=== PATIENT | male | born 1945 | race Caucasian/White ===

== ENCOUNTER 2019-03-01 08:18 | Outpatient (RCR) | payer MEDICARE, SELFPAY ==
--- NOTE | 2019-03-04 09:04 | HP.OTEVAL_ITS ---
Patient's Visit Information MATTHEW CUEVA is a 73 year old M, referred to Occupational Therapy by Pablo Samuels MD, with a diagnosis of Dupuytren contracture. Date of Evaluation: 03/01/19 Occupational Therapist: Jolene Stiles, ELISE/Bryant, CHT - Subjective Subjective: This 73 year old male was seen for OT eval following left LF xiaflex injection on 02/18/19 and manipulation on 02/21/19. Pt is in need of custom orthosis for night use. - ROM ROM Comments: pt demo good functional ROM of left composite fist and ext of digits - Quick DASH-Disab of Arm,Shoulder& Hand Quick DASH Score: 11.3625 - Goals Goal:: PT will demo ind. donning/doffing of custom orthosis by end of 1st session. - Rehabilitation General Assessment: Pt arrives following left LF xiaflex injection on 02/18/19 and manipulation on 02/21/19. Pt is in need of custom orthosis for night use. Therapist fabricated orthosis ed. on use and care. pt demo understanding. pt also given handout on HEP for ROM. pt demo understanding of HEP and will only return if he needs orthosis adj. or have any questions with his ROM Rehabilitation Potential: Good - Anticipated Interventions Anticipated Interventions: Orthoses, Home Program Other Interventions: ed. pt on orthosis use - Visit Plan TEXT: Thank you for the opportunity to evaluate your patient. For Medicare and Medicare HMO plans, please review the plan of care and approve it. It will need to be FAXED BACK to us at [phone] for Medicare purposes. Please let me know if there are questions or concerns regarding this plan of care. Physician Signature: Date:
--- NOTE | 2019-04-09 10:01 | HP.OT.NRP ---
HP - Discharge Summary - Patient Information MATTHEW CUEVA was seen in my office for initial evaluation on 03/01/19. The following Plan of Care was established for this patient: - Anticipated Interventions Anticipated Interventions: Orthoses, Home Program Other Interventions: ed. pt on orthosis use This patient was last seen in our office 03/01/19. Pertinent comments regarding their Occupational therapy will appear below: Pt seen for initial OT eval only. At this point I will be discontinuing this patient from occupational therapy. I would be happy to see this patient again in the future if found appropriate by the physician. Thank you! Jolene Stiles, OTR/L, CHT
== END 2019-03-01 19:00 | disposition home or self-care (01) ==
LOC: OT 08:18
PROVIDERS: Family Provider Family Medicine; PCP Family Medicine; Referring Provider Orthopaedic Surgery; Visit Provider Orthopaedic Surgery
DX: M72.0 Palmar fascial fibromatosis [Dupuytren] (principal)
CPT/HCPCS: 97165; 97760

== ENCOUNTER 2020-05-01 08:44 | Emergency (ER) | payer MEDICARE, SELFPAY ==
[2020-05-01 08:45] VITALS: BP 146/86; PULSE 95; RESP 18; TEMP 36.2; O2SAT 99; BMI 27.5
--- NOTE | 2020-05-01 08:59 | ED.VISSUMM ---
- ER Visit Summary Date of Service: 05/01/20 Chief Complaint: Urinary retention History of Present Illness: The patient is a 74 M who presents with urinary retention that began last night. Patient states he has been unable to urinate since last night. Patient states he is able to dribble small amounts of urine but he is unable to empty his bladder. Patient admits to some burning with urination. Patient denies any hematuria. Patient denies any flank or back pain. Patient denies any nausea or vomiting. Patient denies any fevers or chills. Patient had a recent cystoscopy and was noted to have prostate hypertrophy. Physical Examination: Vital signs are stable. Patient is afebrile. Patient is in no acute distress. Neck is supple. Trachea is midline. There is no JVD. Heart was regular rate and rhythm. Lungs are clear and equal bilaterally. Abdomen is soft. Bowel sounds are normal. There is a distended bladder noted. There is some mild suprapubic tenderness. There is no rebound or guarding noted. There is no CVA tenderness noted. Cranial nerves II through XII are intact. There are no focal motor or sensory deficits noted. Emergency Department Course and Treatment: Salinas catheter was placed. Dr. Bustillos called him prior to the patient coming to the emergency department and 1 of the patient to be given a prescription for 5-day course of Cipro. He will follow-up with the patient in his office. Patient was also given a leg bag. Patient understood and was agreeable with the plan. All questions were answered. Disposition: Discharge home Impression: 1. Urinary retention This note was generated with [employer] dictation software. It may contain incorrect words, spelling, and punctuation that were not noted in review of the chart prior to signing ED Disposition - Plan for ED Patient: Disposition: Home or Assisted Living Diagnosis: Urinary retention due to benign prostatic hyperplasia Instructions: ED Salinas Catheter Care, ED Prostate Enlarged Prescriptions: Ciprofloxacin [Cipro] 500 mg PO BID #10 tab Transmission Status: Pending to [facility] Referrals: Oliver Bustillos MD [STAFF PHYSICIAN] - 3-5 Days
[2020-05-01] MEDS: Lidocaine Jelly 2% 20 ML Syringe (URO-JET) 20 APPLIC TOPICAL (09:11)
[2020-05-01 09:24] VITALS: PULSE 88; RESP 16
[2020-05-01] MEDS: Ciprofloxacin 500 MG Tablet PO (09:24)
== END 2020-05-01 09:37 | disposition home or self-care (01) ==
PROVIDERS: Emergency Provider Emergency Medicine; PCP Family Medicine
DX: N40.1 Benign prostatic hyperplasia with lower urinary tract symptoms (principal); R33.8 Other retention of urine
CPT/HCPCS: 51702; 99284

== ENCOUNTER 2020-05-06 08:29 | Emergency (ER) | payer MEDICARE, SELFPAY ==
[2020-05-06 08:30] VITALS: BP 133/77; PULSE 91; RESP 16; TEMP 36.5; O2SAT 98; BMI 28.5
[2020-05-06] MEDS: Lidocaine Jelly 2% 20 ML Syringe (URO-JET) 20 APPLIC TOPICAL (08:40)
--- NOTE | 2020-05-06 08:41 | ED.DCSUM_ITS ---
- ER Visit Summary Date of Service: 05/06/20 Chief Complaint: Urinary retention History of Present Illness: The patient is a [address] pro krutz. He reports today a Salinas catheter placed May 01. It was removed yesterday. He did fine throughout the day. However, he reports that he was up all night trying to urinate and was unable to go. He complains of pain at the tip of his penis. He reports that he had a small amount of white discharge from his penis that he believes may have been the gel that was used when the catheter was placed. He denies any fever, chills, nausea, vomiting, or other constitutional symptoms. He is currently on Flomax and Proscar. Physical Examination: Vitals: Stable. Afebrile. General: Well-nourished and well-developed. Head: Normocephalic atraumatic. Neck: Supple, no lymphadenopathy. No JVD. Nontender. Cardiovascular: Regular rate and rhythm. No murmurs. Respiratory: No respiratory distress. Clear to auscultation bilaterally. Abdominal: Soft, mildly distended bladder with mild tenderness to palpation, nondistended, normal bowel sounds. No guarding, rebound, or peritoneal signs. : Normal circumcised male. No erythema or discharge from his penis. Back: Nontender. Extremities: Nontender, no edema. Skin: Normal color, no rash. Neurologic: Alert and oriented ?3. Cranial nerves II through XII are intact. Normal strength and sensation. Psych: Normal affect. Test Results: Urinalysis shows occult blood. Chem-7 shows a chloride of 111 and BUN of 27. Creatinine is 1.49 and there is no old for comparison. CBC shows an H&H of 10.7 31.6, segmented for 73, lymphocytes of 16. Emergency Department Course and Treatment: Patient had lidocaine used and a Salinas catheter was placed. He is had 500 cc of urine out. Treatment Plan: Patient was discussed with Dr. pro kurtz. He will be discharged with instructions to use triple antibiotic to the area. Follow-up with Dr. Bustillos in 3 to 5 days. Patient is already scheduled for a TURP. Return to the emergency department for any worsening symptoms. Disposition: To home in improved and stable condition. Impression: 1. Urinary retention. This note was generated with [employer] software. It may contain incorrect words, spelling, and punctuation that were not noted in review of the chart prior to signing ED Disposition - Plan for ED Patient: Instructions: ED Urinary Retention Male Referrals: Oliver Bustillos MD [STAFF PHYSICIAN] - 3-5 Days
[2020-05-06 08:57] LABS: Bacteria 0 SEEN /hpf (None Seen); Mucous, Urine 0 SEEN /hpf (<or=2+); Squamous Epithelial Cells - UA 0 SEEN /hpf (0-5); White Blood Cells 0 SEEN /hpf (0-5)
[2020-05-06 08:59] LABS: Color, Urine Yellow (Yellow); Glucose, Dipstick Normal (Normal); Ketone-Dipstick Negative (Negative); Leukocyte Esterase-Dipstick Negative /ul (Negative); Nitrite-Dipstick Negative (Negative); Occult Blood-Urine 10 /ul (Negative); Protein-Dipstick Negative (Negative); Urine Bilirubin Dipstick Negative (Negative); Urine Clarity Sl. Cloudy (Clear); Urine Urobilinogen Normal (Normal)
[2020-05-06 09:09] LABS: Absolute Lymphocyte Count 0.72 X10^3/uL (0.83-4.51); Absolute Neutrophil Count 3.3 X10^3/uL (2.0-7.7); Basophil# 0.02 X10^3/uL; Basophil% 0.4 % (0-1); Eosinophil# 0.09 X10^3/uL; Hematocrit 31.6 % (40-54); Hemoglobin 10.7 g/dL (13.0-16.5); Lymphocyte # 0.72 X10^3/ul (4.0); Lymphocyte % 15.9 % (19-41); Mean Corp Hgb Conc 33.9 g/dL (32-36); Mean Corpuscular Hgb 33.2 pg (27.0-32.0); Mean Corpuscular Volume 98.1 fL (80-94); Mean Platelet Vol. 9.3 fl (6.2-12.0); Monocyte# 0.37 X10^3/uL; Monocyte% 8.1 % (0-10); NRBC Flagged by Analyzer 0 % (0-5); Neutrophil # 3.31 X10^3/uL (2.7-7.7); Neutrophil % 72.9 % (47-70); Platelet Count 198 K/mm3 (150-450); RBC Distribution Width SD 43.5 fl (35.1-43.9); Red Blood Count 3.22 M/mm3 (4.6-6.2); White Blood Count 4.5 K/mm3 (4.4-11.0)
[2020-05-06 09:09] LABS: Red Blood Cells-Urine 0-5 SEEN /hpf (0-5)
[2020-05-06 09:22] LABS: Anion Gap 4 (5-15); BUN 27 mg/dL (7-18); BUN/Creat Ratio 18.1 RATIO (10-20); Calcium,Total 9.1 mg/dL (8.5-10.1); Chloride 111 mmol/L (98-107); Creatinine, Serum 1.49 mg/dL (0.70-1.30); EST Glomerular Filtration Rate 49 mL/min (>60); Est Glom Filt Rate - Afr Amer 59 mL/min (>60); Estimated Creatinine Clearance 52.59 ml/min; Glucose 96 mg/dL (74-106); Potassium 4.1 mmol/L (3.5-5.1); Sodium Level 141 mmol/L (136-145)
[2020-05-06 10:12] VITALS: BP 126/66; PULSE 68; RESP 18; O2SAT 99
== END 2020-05-06 10:13 | disposition home or self-care (01) ==
LOC: ED 09:09
PROVIDERS: Emergency Provider Emergency Medicine; PCP Family Medicine
DX: N40.1 Benign prostatic hyperplasia with lower urinary tract symptoms (principal); R33.8 Other retention of urine; I10 Essential (primary) hypertension; N28.9 Disorder of kidney and ureter, unspecified; Z79.899 Other long term (current) drug therapy; Z87.891 Personal history of nicotine dependence
CPT/HCPCS: 51702; 80048; 81001; 85025; 99283

== ENCOUNTER 2020-05-13 05:58 | Day surgery (SDC) | payer MEDICARE, SELFPAY ==
--- NOTE | 2020-05-06 16:00 | EKG12_ITS ---
Test Reason : PREOP Blood Pressure : / mmHG Vent. Rate : 087 BPM Atrial Rate : 087 BPM P-R Int : 140 ms QRS Dur : 092 ms QT Int : 360 ms P-R-T Axes : 066 050 039 degrees QTc Int : 433 ms Normal sinus rhythm Normal ECG Confirmed by MALLY GALEANA, MIREYA ([id number]), content editor NADJA SEAMAN ([id number]) on 05/13/2020 10:50:58 AM Referred By: Oliver Bustillos Confirmed By:EED BAL MD
[2020-05-13] VITALS (13 sets, daily range): BP systolic 103–120; BP diastolic 56–74; PULSE 62–75; RESP 16–18; TEMP 36.1–36.7; O2SAT 95–100; BMI 27.1
[2020-05-13] MEDS: Lactated Ringers 1,000 ML 100 ML IV ×2 (06:45→09:24)
[2020-05-13] MEDS: Cefazolin 2 GM in 0.9% Normal Saline 100 ML IV (07:23)
--- NOTE | 2020-05-13 07:26 | PCM.HP.STD ---
History of Present Illness Date of Admission: 05/13/20 Chief Complaint: BPH with obstruction and urinary retention The patient is a 74 year old male who was seen in the office on cystoscopy was found to have significant bilateral hypertrophy and obstruction recommended a transurethral resection of the prostate. Today he presents with a catheter in order to proceed with surgery in the prostate. Past Medical History Allergies No Known Allergies Allergy (Verified 05/13/20 06:30) Home Medications: Ambulatory Orders Medication Instructions Recorded Ciprofloxacin [Cipro] 500 mg PO BID #10 tab 05/01/20 Amlodipine [Norvasc] 5 mg PO DAILY 05/06/20 Finasteride [Proscar] 5 mg PO DAILY 05/06/20 Lisinopril 20 mg PO DAILY 05/06/20 Tamsulosin HCl [Flomax] 0.8 mg PO DAILY 05/06/20 Surgical History: no surgical history Smoking Status: Never smoker Tobacco Use: Non-smoker Review of Systems Constitutional: Denies: Chills, Fever, Weight Change HEENT: Denies: Head Aches, Sinus Congestion, Sinus Drainage Cardiovascular: Denies: Chest Pain, Palpitations Respiratory: Denies: Cough, Shortness of breath at rest, Sputum production Gastrointestinal: Denies: Abdominal Pain, Nausea, Vomiting Genitourinary: Denies: Dysuria Musculoskeletal: Denies: Joint Pain, Joint Tenderness Skin: Denies: Rash, Wounds Neurological: Denies: Numbness, Tingling, Focal weakness Psychiatric: Denies: Anxiety, Depression, Homicidal Ideations, Suicidal Ideations Hematologic/ Lymphatic: Denies: Easy Bruising, Easy Bleeding VTE Information - Inpt Only VTE Present on Admission: No - Physical Exam Vitals/I&O's: Vital Signs Temp Pulse Resp BP Pulse Ox 97.6 F L 71 18 113/70 99 05/13/20 06:30 05/13/20 06:30 05/13/20 06:30 05/13/20 06:30 05/13/20 06:30 Oxygen Delivery Method Room Air Weight: 101.1 kg Body Mass Index (BMI) 27.1 General: Alert, Oriented x3, Cooperative HEENT: Atraumatic, PERRLA, EOMI, Normocephalic Neck: Supple, No JVD, Negative Carotid Bruits Lungs: Clear to auscultation, Normal air movement Cardiovascular: Regular rate, No murmurs Abdomen: Bowel Sounds Present, Soft, Non Tender Extremities: No edema, Capillary Refill Less than 3 Seconds Skin: No rashes, No breakdown Musculoskeletal: No Tenderness to Palpation of Joints or Extremities Neurological: Cranial nerves II-XII grossly intact Psych/Mental Status: Normal Affect, Appropriate Current Medications Cefazolin Sodium 2 gm/ Sodium (Chloride) 110 mls @ 150 mls/hr IV PREOP ONE Stop: 05/13/20 09:03 Lactated Ringer's () 1,000 mls @ 100 mls/hr IV .Q10H GILBERTO Last Admin: 05/13/20 06:45 Dose: 100 mls/hr Documented by: Assessment/Plan Plan to proceed with transurethral resection of the prostate.
--- NOTE | 2020-05-13 07:30 | PROS_PTH ---
PATIENT: MATTHEW CUEVA [place] [facility] [id number] AGE/SX: 74/M ROOM: RE05/13/[address]: Dr. Oliver Bustillos MD : [id number] BED: DIS: 05/14/2020 SPEC #: [id number] RECD: 05/13/20 10:22 STATUS: JERRELL REClementina #: [id number] DOMINICK: 05/13/20 07:[address]: Oliver Bustillos DEPT: SURGICAL PATHOLOGY RECD BY: Oneyda Casanova ENTERED: 05/13/20 12:21 SP TYPE: TURP OTHR DR: Dr. Adam Mata III, MD Tissues: Prostate, NOS Procedures: Surgery Specimen Level IV HEADER OPERATION: Cysto, TUR prostate, Olympus PRE-OP DIAGNOSIS: BPH with obstruction and urinary retention TISSUE SUBMITTED: Prostate pieces MICROSCOPIC DIAGNOSIS Prostate transurethral resection: Benign nodular hyperplasia, glandular and stromal types. Chronic inflammation. AM:imelda 05/14/20 MICROSCOPIC DESCRIPTION Slides are reviewed. GROSS DESCRIPTION Received is one container labeled with the patient's name and designated prostate pieces. The specimen consists of multiple irregular fragments of pink-fajardo, rubbery, soft tissue that in aggregate weigh 17.8 gm and measure in aggregate 6 x 6 x 2.5 cm. The entire specimen is submitted in ten cassettes. / SJ:imelda 05/13/20 TC:3 CPT: 17971
[2020-05-13] MEDS: Lubricating Jelly 60 GM Tube 30 GM TOPICAL (07:40)
--- NOTE | 2020-05-13 08:39 | DCINST_ITS ---
Discharge Diet: Light diet - advance as tolerated Discharge Activity: Return to Normal Activity Call your doctor if your incision/area has: Continuous Slow Oozing, Sudden Increased Bleeding, Increased Pain/ Swelling, Increased Redness, Foul Smelling Discharge, Swelling at the incision site Suture Line Care: Avoid Pulling/Pushing, Avoid Pinching/Bending Instructions: Transurethral Resection of the Prostate (TURP): Home Recovery Allergies/Adverse Reactions: Allergies No Known Allergies Allergy (Verified 05/13/20 06:30) Medications to take at Discharge Ciprofloxacin [Cipro] 500 mg PO BID #10 tab 05/01/20 Amlodipine [Norvasc] 5 mg PO DAILY 05/06/20 Finasteride [Proscar] 5 mg PO DAILY 05/06/20 Lisinopril 20 mg PO DAILY 05/06/20 Tamsulosin HCl [Flomax] 0.8 mg PO DAILY 05/06/20 Ciprofloxacin [Cipro] 500 mg PO BID #14 tab 05/13/20 The following prescriptions were given: Ciprofloxacin [Cipro] 500 mg PO BID #14 tab Transmission Status: Pending to [facility] [place] [address] Orders to be completed after discharge: 12 Lead EKG [CVS] Time Frame: 05/08/20, Location: None Selected Primary Care Physician: Adam Mata III, MD [Primary Care Provider] - Test Results: Test results from this visit will be discussed in further detail at your follow- up appointment, if applicable. Please Follow Up With: Oliver Bustillos MD When: in 2 weeks, please call to make an appointment.
--- NOTE | 2020-05-13 08:40 | OP.PCM_ITS ---
Report of Operation Date of Procedure: 05/13/20 Pre-Operative Diagnosis: BPH with obstruction Post-Operative Diagnosis: Same Surgery/Procedure Performed:: Transurethral resection of the prostate Description of Surgical Findings:: 74-year-old male with a history of enlarged prostate and obstruction presents the hospital for treatment of the prostate with a transurethral resection. He was taken back to the operating room. After smooth induction of general anesthesia he was placed in dorsolithotomy position. The penis and testicles were prepped and draped in usual sterile fashion. I went into the bladder with a 24 [place]an noncontinuous flow resectoscope Olympus. Identify the right and left ureteral orifice. 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 I then pulled back into the prostate and identified the verumontanum. I marked the verumontanum circumferentially to know the limit of the resection. I then started the resection of the prostate using the Olympus and I resected the floor of the right of the prostate left the prostate and very carefully resected the roof of the prostate and then the apical tissue. Had a nice wide open resection down to the verumontanum the sphincter was intact. Bleeding was controlled with hemostasis. All the chips were Ellik out of the bladder. We then placed a 22 [place] Salinas catheter into the bladder and continuous irrigation the urine was a light pink color and he was taken back to the PACU in good condition. Type of Anesthesia:: General Drains: [address] - Admit VTE Documentation VTE Present on Admission: No VTE Mechan Device Prophylaxis: SCD's
[2020-05-13] MEDS: 0.45% Normal Saline 1,000 ML 75 ML IV (11:35)
[2020-05-13] MEDS: Magnesium Hydroxide 30 ML UDC 15 ML PO (12:02)
[2020-05-13] MEDS: oxyCODONE 5 MG Tablet PO ×2 (12:09→21:36)
[2020-05-13] MEDS: Ciprofloxacin 400 MG/200 ML BAG 200 MG IV (15:17)
[2020-05-13] MEDS: Docusate Sodium 100 MG Capsule PO (21:36)
[2020-05-14] MEDS: 0.45% Normal Saline 1,000 ML 75 ML IV (01:31)
[2020-05-14 02:30] VITALS: BP 112/69; PULSE 69; RESP 16; TEMP 36.4; O2SAT 96
[2020-05-14 06:13] LABS: Hematocrit 30.9 % (40-54); Hemoglobin 10.1 g/dL (13.0-16.5); Mean Corp Hgb Conc 32.7 g/dL (32-36); Mean Corpuscular Hgb 32.2 pg (27.0-32.0); Mean Corpuscular Volume 98.4 fL (80-94); Platelet Count 213 K/mm3 (150-450); RBC Distribution Width CV 12.1 % (11.6-14.6); RBC Distribution Width SD 43.8 fl (35.1-43.9); Red Blood Count 3.14 M/mm3 (4.6-6.2); White Blood Count 10.2 K/mm3 (4.4-11.0)
[2020-05-14 06:48] LABS: Anion Gap 4 (5-15); BUN 24 mg/dL (7-18); BUN/Creat Ratio 17.6 RATIO (10-20); Calcium,Total 8.6 mg/dL (8.5-10.1); Chloride 109 mmol/L (98-107); Creatinine, Serum 1.36 mg/dL (0.70-1.30); EST Glomerular Filtration Rate 54 mL/min (>60); Est Glom Filt Rate - Afr Amer 66 mL/min (>60); Estimated Creatinine Clearance 56.09 ml/min; Glucose 99 mg/dL (74-106); Potassium 4.5 mmol/L (3.5-5.1); Sodium Level 139 mmol/L (136-145)
--- NOTE | 2020-05-14 08:11 | NURSING ---
Per lorie Townsend to D/C merlos. Pt tolerated well. Removed 30 cc from balloon and noted 800cc of urine upon D/C. There was a small amount of blood noted on D/C of merlos. Angela LOUISE
[2020-05-14] MEDS: Ciprofloxacin 400 MG/200 ML BAG 200 MG IV (09:14)
[2020-05-14] MEDS: Lisinopril 20 MG Tablet PO (09:15)
[2020-05-14] MEDS: Tamsulosin HCl 0.4 MG Capsule 0.8 MG PO (09:15)
[2020-05-14] MEDS: Pantoprazole Sodium 20 MG Tablet PO (09:15)
[2020-05-14] MEDS: Docusate Sodium 100 MG Capsule PO (09:15)
[2020-05-14] MEDS: amLODIPine 5 MG Tablet PO (09:15)
[2020-05-14] MEDS: Finasteride 5 MG Tablet PO (09:16)
[2020-05-14] MEDS: Magnesium Hydroxide 30 ML UDC 15 ML PO (09:22)
[2020-05-14 10:34] VITALS: BP 123/71; PULSE 71; RESP 18; TEMP 36.3; O2SAT 96
[2020-05-14 11:57] VITALS: BP 124/69; PULSE 74; RESP 18; TEMP 37; O2SAT 99
== END 2020-05-14 07:26 | disposition home or self-care (01) ==
LOC: SDC 05:58 → AC 05:59 → PCU 05-14 12:17
PROVIDERS: Anesthesiology; PCP Family Medicine; Referring Provider Urology; Visit Provider Urology
PROC: (CPT 52601; principal; 2020-05-13 07:20)
DX: N41.1 Chronic prostatitis (principal); N40.1 Benign prostatic hyperplasia with lower urinary tract symptoms; N32.81 Overactive bladder; N13.8 Other obstructive and reflux uropathy; R33.8 Other retention of urine; I10 Essential (primary) hypertension; Z87.891 Personal history of nicotine dependence
CPT/HCPCS: 00914; 52601; 36415; 80048; 85027; 87635; 88305; 93005; C9803; J7120; J0744; J2405; U0003

== ENCOUNTER 2020-09-28 11:47 | Outpatient (RCR) | payer MEDICARE, SELFPAY ==
[2020-05-13 11:14] VITALS: BMI 27.1
== END 2020-09-28 23:59 ==
LOC: IMMUN 11:47
PROVIDERS: PCP Family Medicine; Visit Provider Family Medicine
DX: Z23 Encounter for immunization (principal)
CPT/HCPCS: 0011A; 0012A

== ENCOUNTER 2022-12-31 15:07 | Emergency (ER) | payer MEDICARE, SELFPAY ==
[2022-12-31 15:09] VITALS: BP 94/66; PULSE 73; RESP 18; TEMP 36.6; O2SAT 98; BMI 26.9
--- NOTE | 2022-12-31 15:24 | ED.RN ---
IV FLUIDS INFUSING FROM EMS
--- NOTE | 2022-12-31 15:39 | EKG12_ITS ---
Test Reason : SYNCOPE Blood Pressure : / mmHG Vent. Rate : 074 BPM Atrial Rate : 074 BPM P-R Int : 146 ms QRS Dur : 094 ms QT Int : 382 ms P-R-T Axes : 063 067 029 degrees QTc Int : 424 ms Normal sinus rhythm Normal ECG Confirmed by DREA GALEANA, ROBERTO ([id number]), editor magazine NADJA SEAMAN ([id number]) on 01/03/2023 8:37:17 AM Referred By: Confirmed By:ROBERTO SHEPARD MD
--- NOTE | 2022-12-31 15:40 | EX.ED.DYSGE1 ---
HPI History of Present Illness Chief Complaint: Syncope Detail of Chief Complaint: Near syncope Informant: patient and family Onset/Context/Timing Onset: Today Context: Sudden Onset Current Severity: Gone Maximum Severity: Moderate Narrative Narrative: 77-year-old male history of hyper tension for which she is on lisinopril and amlodipine. Patient walks a fair amount he walked yesterday and cut his lawn. He walked a mile today. He was in the parking lot of the senior living where his stays, [facility], and felt like he was going to pass out. He got lightheaded. He denies any headache, chest pain, shortness of breath, abdominal pain. He denies any nausea, vomiting, diarrhea or melena. He denies any recent illnesses and has been feeling quite well. When he felt lightheaded today instead of falling or passing out he lowered himself to the ground. He denies any injuries. Reportedly the squad had a blood pressure of 80s over 40s. He is currently receiving IV fluids says he feels a lot better. Our initial blood pressure in ER was 94/66. Currently is 104/67. Prior similar symptoms: No Recent Illness/Hospitalization: No PFSH PFSH Home Medications amlodipine 5 mg tablet 5 mg PO DAILY 05/06/20 [History Last Taken Unknown] finasteride 5 mg tablet 5 mg PO DAILY 05/06/20 [History Last Taken Unknown] lisinopril 20 mg tablet 20 mg PO DAILY 05/06/20 [History Last Taken Unknown] tamsulosin 0.4 mg capsule 0.8 mg PO DAILY 05/06/20 [History Last Taken Unknown] meloxicam 15 mg tablet 15 mg PO DAILY 12/31/22 [History Last Taken Unknown] trazodone 50 mg tablet 50 mg PO DAILY 12/31/22 [History Last Taken Unknown] Allergy/AdvReac Type Severity Reaction Status Date / Time No Known Allergies Allergy Verified 05/13/20 06:30 Social History Smoking Status: Never smoker ROS ROS ED ROS Narrative Denies recent illness. Denies headache, chest pain, shortness of breath, abdominal pain, vomiting or diarrhea. Review of Systems ROS Unobtainable: Denies due to encephalopathy Constitutional Constitutional ED: Denies chills or fever(s) Eyes Eyes: Denies blurry vision ENT ENT ED: Denies ear pain Cardiovascular Cardiovascular: Denies chest pain Respiratory/Chest Respiratory/Chest: Denies cough or dyspnea Gastrointestinal Gastrointestinal: Denies abdominal pain Genitourinary Genitourinary ED: Denies dysuria or hematuria Musculoskeletal Musculoskeletal: Denies arthralgias Integumentary Denies abscess Neurologic Neurologic: Denies headache(s) Psychiatric Psychiatric: Denies anxiety Endocrine Endocrinology: Denies cold intolerance Hematologic/Lymphatic Hematologic/Lymphatic: Reports none Allergic/Immunologic Allergic/Immunologic ED: Denies mouth swelling or tongue swelling EXAM Physical Exam Narrative Exam Narrative: Well-appearing 77-year-old male. Blood pressure while I am in the room is 104/67. Afebrile. Normal pulse ox 98% on room air no hypoxia. H EENT exam unremarkable. No trauma. Moist with members. Neck nontender. No lymphadenopathy. Lungs clear to auscultation bilaterally. Heart regular rhythm rate about 70 no murmur. Chest wall nontender. Abdomen soft nontender. 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 Normal dorsi plantarflexion. Normal sensation. Back nontender. Neurologic exam normal. Awake alert. Normal strength or sensation. NIH is 0. Const Vital Signs: 12/31/22 15:09 12/31/22 16:23 12/31/22 16:29 Temperature 97.8 F Temperature Source Oral Pulse Rate 73 77 Pulse Rate [Lying] 77 Pulse Rate [Sitting (for 1 minute prior to obtaining)] 84 Pulse Rate [Standing (for 1 minute prior to obtaining)] 89 Respiratory Rate 18 15 Blood Pressure 94/66 100/69 Blood Pressure [Lying] 100/69 Blood Pressure [Sitting (for 1 minute prior to obtaining)] 109/66 Blood Pressure [Standing (for 1 minute prior to obtaining)] 112/63 Blood Pressure Mean 75 79 Blood Pressure Mean [Lying] 79 Blood Pressure Mean [Sitting (for 1 minute prior to obtaining)] 80 Blood Pressure Mean [Standing (for 1 minute prior to obtaining)] 79 Pulse Ox 98 99 Oxygen Delivery Method Room Air Room Air Positive well nourished and well developed; Negative for obese, cachectic, contractures or unkempt General Appearance ED: well developed and NAD; Negative for unkempt, cachectic, contractures, cyanotic, diaphoretic or pallor Nutritional Appearance: Negative for cachectic or obese HEENT Reports moist mucous membranes; Denies dry mucous membranes Negative for trauma or tenderness Mouth ED: No dry mucous membranes Mouth: No dry mucous membranes Eyes PERRL and EOMs intact bilaterally General Eye ED: Negative for pale conjunctiva or scleral icterus Neck no lymphadenopathy, supple and no JVD General: Negative for tenderness Resp normal respiratory effort and clear to auscultation bilaterally Effort and Inspection: Negative for retractions Auscultation: Negative for rales, rhonchi or wheezes Cardio regular rate, regular rhythm, S1 normal heart sound, S2 normal heart sound and no murmurs GI normal to inspection, nondistended, normoactive bowel sounds, non-tender, non-distended and no masses Inspection: Negative for abdominal distention Auscultation: normoactive bowel sounds Palpation: soft Back/Spine General Back: Negative for CVA tenderness Cervical Spine: Negative for cervical spine tenderness Neuro oriented x3, CN's II-XII intact bilaterally and no sensory deficits noted Sensorium / Orientation: alert; Negative for orientation impaired, lethargic or stuporous Motor Exam: strength 5/5 throughout Psych mental status grossly normal Appearance: Negative for unkempt Attitude: No agitated Mood & Affect: Negative for depressed, anxious or tearful Skin no rashes or lesions noted, no wounds and skin turgor normal General Skin Exam: elasticity normal; Negative for jaundice or pallor Lesions: No lesion noted Rashes: No rashes noted Trauma: Negative for abrasion Wounds: Negative for wounds noted MDM MDM MDM Narrative Medical decision making narrative: 69-year-old male with near syncopal episode. This may be from dehydration he was initially hypotensive which is improving with IV fluids. He has had no recent illnesses or concerns for infection. He had no chest pain, abdominal pain or shortness of breath. He has had no vomiting or diarrhea. However he did cut his grass yesterday outside and was pretty worn out. He also walked extensively yesterday and today. Receive IV fluids along with screening labs. Currently there is no signs of dysrhythmia Patient is labs are consistent with dehydration with his hemoglobin jumping up from 10-12 and his BUN and creatinine both being elevated at 40 and 2.2. His prior creatinine was 1.36. I discussed this at length with both he and his son. He received a liter of fluid here. He is walking the hallways and doing well. His orthostatic vital signs were negative. We discussed his test results. They are comfortable with him being discharged. I have his primary care physician or the physician on-call for him on page. Patient knows he needs to follow-up this week with his doctor to have his kidney function rechecked since he had a significant jump. Plenty of fluids and rest. History & Record Review Discussion w/independent historian: Patient Additional record(s) reviewed:: Prior inpatient record, Prior outpatient record and Prior ED visit Lab Data Attestation: I reviewed the patient's lab results. Lab results narrative: CBC shows a white count 9.7. H&H 12.3 and 35.6 which is his baseline. Platelets 216. Electrolytes show a gap of 9 BUN and creatinine of 40 and 2.26 glucose 111. Troponin 5. Labs: Laboratory Results - last 24 hr 12/31/22 12/31/22 15:40 15:40 WBC 9.7 RBC 3.65 L Hgb 12.3 L Hct 35.6 L MCV 97.5 H MCH 33.7 H MCHC 34.6 RDW Std Deviation 44.4 H RDW Coeff of Ang 12.3 Plt Count 216 MPV 9.9 Immature Gran % (Auto) 0.200 Neut % (Auto) 77.9 H Lymph % (Auto) 12.4 L [place] % (Auto) 6.1 Eos % (Auto) 3.1 Baso % (Auto) 0.3 Absolute Neuts (auto) 7.6 Absolute Lymphs (auto) 1.20 Nucleated RBC % 0 Sodium 140 Potassium 4.8 Chloride 109 H Carbon Dioxide 22.0 Anion Gap 9 BUN 40 H Creatinine 2.26 H Estim Creat Clear Calc 33.07 Est GFR (MDRD) Af Amer 36 L Est GFR (MDRD) Non-Af 30 L BUN/Creatinine Ratio 17.7 Glucose 111 H Calcium 9.5 Troponin I High Sens 5 Radiography Chest X-Ray - ED: 1 View, Read by ED Physician, Read by Radiologist, Heart, Lungs, Mediastinum, Bony Structures, No Acute Disease and Chronic Changes Diagnostic Testing: Clinical Impression(s) from Imaging Studies Chest X-Ray 12/31/22 15:52 IMPRESSION: There are findings consistent with COPD. There is no evidence of acute chest disease. Electronically Signed: Rich Vail MD at 16:11 EDT , Chest x-ray, portable, single view shows no acute abnormality. Normal cardiac silhouette. No pneumonia. Interpreted both by myself and the radiologist. We agree. Rhythm Strip Rhythm Strip: Sinus Rhythm Rate: 74 Ectopy: None EKG Initial EKG: Attestation: I personally reviewed and interpreted this EKG as follows: Interpretation: Sinus Rhythm and No Acute Injury Pattern Comments: Normal sinus rhythm rate of 74 no acute signs of IA or ischemia. Discharge Plan Triage Chief Complaint: Syncope ED Provider: Bennett Hays Dx/Rx/DC Orders Clinical Impression: Transient hypotension, Acute dehydration, Acute kidney injury, Near syncope Instructions: ED Dehydration (Adult) Prescriptions: No Action lisinopril 20 MG tablet 20 mg PO DAILY amlodipine 5 MG tablet 5 mg PO DAILY tamsulosin 0.4 MG capsule 0.8 mg PO DAILY finasteride 5 MG tablet 5 mg PO DAILY trazodone 50 mg tablet 50 mg PO DAILY meloxicam 15 mg tablet 15 mg PO DAILY Primary Care Provider: Pietro Gao Referrals: Pietro Gao MD [Primary Care Provider] - As soon as possible NOT,DEFINED [Non-Staff] - Activity Restrictions/Additional Instructions: I think all your symptoms today of being lightheaded, dizzy and low blood pressure due to dehydration. This also affected your kidney function which should improve. Plenty of fluids. Water, Gatorade and 7-Up. Call and follow-up with your doctor on Monday to be seen this week to have your kidney function rechecked. I spoke to Dr. Nelson on-call for your doctor today. They will help ensure that you get close follow-up this week and have your kidney function rechecked. The [facility] doctors can see all of her labs and my dictation in the computer. Disposition Disposition: Home, Self Care
[2022-12-31] MEDS: 0.9% Normal Saline 1,000 ML 1000 ML IV (15:48)
--- NOTE | 2022-12-31 15:52 | RAD_ITS ---
STUDY: X-RAY CHEST REASON FOR EXAM: Male, 77 years old. near syncope TECHNIQUE: Single AP portable view of the chest. COMPARISON: None. FINDINGS: There is hyperinflation of the lungs consistent with chronic obstructive lung disease (COPD). Mild scarring in the lung bases. No infiltrates or effusions. There is no demonstrated pleural abnormality. Normal size heart. Normal mediastinum and edy. There is prominence of the pulmonary hilar arteries without peripheral pulmonary vascular congestion, suggesting pulmonary hypertension. Normal visualized aortic arch and descending thoracic aorta. There are diffuse degenerative changes of the visualized thoracic spine. There is degenerative osteoarthritis of the bilateral shoulders. There is no demonstrated abnormality of the visualized soft tissue structures of the upper abdomen. RAD/Chest 1 View (Portable) IMPRESSION: There are findings consistent with COPD. There is no evidence of acute chest disease. Electronically Signed: Rich Vail MD at 16:11 EDT ,
[2022-12-31 15:54] LABS: Absolute Neutrophil Count 7.6 X10^3/uL (2.0-7.7); Basophil# 0.03 X10^3/uL; Basophil% 0.3 % (0-1); Eosinophils% 3.1 % (0-5); Hematocrit 35.6 % (40-54); Hemoglobin 12.3 g/dL (13.0-16.5); Lymphocyte % 12.4 % (19-41); Mean Corp Hgb Conc 34.6 g/dL (32-36); Mean Corpuscular Hgb 33.7 pg (27.0-32.0); Mean Corpuscular Volume 97.5 fL (80-94); Mean Platelet Vol. 9.9 fl (6.2-12.0); Monocyte# 0.59 X10^3/uL; Monocyte% 6.1 % (0-10); NRBC Flagged by Analyzer 0 % (0-5); Neutrophil # 7.57 X10^3/uL (2.7-7.7); Neutrophil % 77.9 % (47-70); Platelet Count 216 K/mm3 (150-450); RBC Distribution Width CV 12.3 % (11.6-14.6); RBC Distribution Width SD 44.4 fl (35.1-43.9); Red Blood Count 3.65 M/mm3 (4.6-6.2); White Blood Count 9.7 K/mm3 (4.4-11.0)
[2022-12-31 16:12] LABS: Anion Gap 9 (5-15); BUN 40 mg/dL (7-18); BUN/Creat Ratio 17.7 RATIO (10-20); Calcium,Total 9.5 mg/dL (8.5-10.1); Chloride 109 mmol/L (98-107); Creatinine, Serum 2.26 mg/dL (0.70-1.30); EST Glomerular Filtration Rate 30 mL/min (>60); Est Glom Filt Rate - Afr Amer 36 mL/min (>60); Estimated Creatinine Clearance 33.07 ml/min; Glucose 111 mg/dL (74-106); Potassium 4.8 mmol/L (3.5-5.1); Sodium Level 140 mmol/L (136-145); Troponin-I HS 5 pg/mL (3.0-78.0)
[2022-12-31 16:23] VITALS: BP 100/69; PULSE 77; RESP 15; O2SAT 99
[2022-12-31 16:29] VITALS: BP 100/69; BP 109/66; BP 112/63; PULSE 77; PULSE 84; PULSE 89
== END 2022-12-31 17:32 | disposition home or self-care (01) ==
PROVIDERS: Emergency Provider Emergency Medicine; PCP Family Medicine; Visit Provider Emergency Medicine
DX: E86.0 Dehydration (principal); N17.9 Acute kidney failure, unspecified; R55 Syncope and collapse; R03.1 Nonspecific low blood-pressure reading; I10 Essential (primary) hypertension; Z79.899 Other long term (current) drug therapy
CPT/HCPCS: 71045; 80048; 84484; 85025; 93005; 96360; 99285

== ENCOUNTER → 2023-03-09 | Outpatient (CLI) | payer MEDICARE, SELFPAY ==
[2023-03-09 14:02] LABS: PSA,Total - Annual Screen 1.03 ng/mL (0.00-4.00)
== END | disposition home or self-care (01) ==
PROVIDERS: PCP Family Medicine; Referring Provider Nurse Practitioner; Visit Provider Nurse Practitioner
DX: Z12.5 Encounter for screening for malignant neoplasm of prostate (principal)
CPT/HCPCS: 36415; 84153; G0103

== ENCOUNTER → 2023-03-13 | Outpatient (CLI) | payer MEDICARE, SELFPAY | END | disposition home or self-care (01) | LOC: LABSPEC 16:03 | PROVIDERS: PCP Family Medicine; Referring Provider Urology; Visit Provider Urology | DX: R31.9 Hematuria, unspecified (principal) | CPT/HCPCS: 87086; 87088 ==

== ENCOUNTER → 2023-03-16 | Outpatient (CLI) | payer MEDICARE, SELFPAY ==
--- NOTE | 2023-03-16 06:46 | CT_ITS ---
STUDY: CT ABDOMEN AND PELVIS WITH AND WITHOUT CONTRAST REASON FOR EXAM: Male, 77 years old. NOCTURIA. RADIATION DOSAGE (If Supplied By Facility): CTDIvol = ( 20.48 ) mGy, DLP = ( 3085.04 ) mGycm TECHNIQUE: Transaxial images were obtained from the dome of the diaphragm to the symphysis pubis without oral contrast. Oral and amp; IV Readi-CAT and amp; 100mL Isovue-300 was administered. Sagittal and coronal images were reconstructed. Individualized dose optimization techniques were used for this CT. COMPARISON: None. FINDINGS: Minimal linear scar in the lateral aspect of the The visualized portions of the heart are within normal limits. Normal liver. There are multiple gallstones in the region of the neck of the gallbladder.. Normal spleen. Normal pancreas. Normal bilateral adrenal glands. Focal calcification is seen in the posterior midportion of the right kidney along the anterior wall of a 1.2 cm cyst. There is a 2.4 cm by 1.9 cm cyst in the mid portion of the left kidney as well as a 2 cm x 2.1 cm cyst in the upper lateral aspect of the left kidney. Nonspecific bilateral perinephric stranding. Normal visualized stomach. Normal small intestine. There are multiple colonic diverticula consistent with diverticulosis. The appendix is visualized and appears normal. There is atherosclerotic calcification of the abdominal aorta and its major visceral branches, without a demonstrated aneurysm. Normal inferior vena cava. Normal retroperitoneum. Normal urinary bladder. Heterogeneous enlargement of the prostate. There is evidence of a prior TURP. The prostate measures 4.2 cm x 5 cm. This causes indentation at the bladder base. Normal abdominal wall. Grade 2 anterior listhesis of L5 on S1 due to spondylolysis of the pars interarticularis of the L5 vertebrae with disc space narrowing and disc degeneration. CT/CT Abd/Pelvis W/WO Contrast IMPRESSION: Nonspecific bilateral perinephric stranding. 2 simple cysts are seen in the left kidney. There is a 1.2 cm complex cyst in the posterior midportion of the right kidney with a rim-like calcification. Heterogeneous enlargement of the prostate. Multiple gallstones seen in the neck of the gallbladder. Sigmoid diverticulosis. Electronically Signed: Axel Jaffe MD at 11:09 EDT ,
[2023-03-16 07:17] LABS: CREATININE FINGERSTICK 1.8 mg/dL (0.70-1.30)
== END | disposition home or self-care (01) ==
PROVIDERS: PCP Family Medicine; Referring Provider Urology; Visit Provider Urology
DX: R35.1 Nocturia (principal); R39.89 Other symptoms and signs involving the genitourinary system
CPT/HCPCS: 74178; Q9967